=== PATIENT | male | born 1975 | race Caucasian/White ===

== ENCOUNTER 2017-10-28 21:06 | Inpatient (IN) | payer OTHER, MEDICARE ==
[~2017-10-28] VITALS: Ht 182.9 cm; Wt 159.2 kg
[~2017-10-28 21:06] MED LIST: AMLO10TA2 PO; AMLO5TAB2 PO; ASPI-621 PO; ATOR-2 PO; BENA40TA2 PO; CALC0.254 PO; CARV12.52 PO; CINN500C2 PO; CLOP75TA52 PO; DOCU-131 PO; ERGO500017 PO; FURO80TA77 PO; GLIM4TAB2 PO; GYMNEMA PO; HYDR-3245 PO; LANTUS PO; LISI5TAB7 PO; NITR0.4T SL; OMEP-110 PO; PANT40TA3 PO; SEVE800T8 PO; SITA25TA PO; SODI650T PO; TORS20TA2 PO; VITAMIN D2 PO
[2017-10-28] MEDS ORDERED: NITROGLYCERIN SINGLE TAB 0.4 MG SL PRN (22:00)
[2017-10-28] MEDS ORDERED: SODIUM CHLORIDE FLUSH 10ML SYR IVF ONE (22:00)
[2017-10-28 22:14] LABS: MEAN CORPUSCULAR HGB CONC 32.6 g/dL (33.2-36.2); MEAN CORPUSCULAR VOLUME 104.4 fL (81-97); MEAN PLATELET VOLUME 8.2 fL (7.4-10.4); PLATELET COUNT 220 x10^3/uL (130-400); RED BLOOD COUNT 3.47 x10^6/uL (4.38-5.82); RED CELL DISTRIBUTION WIDTH 17.6 % (9.4-14.8)
[2017-10-28 22:23] LABS: ALBUMIN 3.6 g/dL (3.4-5.0); ANION GAP 15 mmol/L (5-15); CALCIUM 8.1 mg/dL (8.5-10.1); CHLORIDE 95 mmol/L (98-107)
[2017-10-28 22:35] LABS: INTERNATIONAL NORMALIZED RATIO 1.04 (0.93-1.1); PROTHROMBIN TIME 10.8 Seconds (9.6-11.5)
[2017-10-28 22:52] LABS: BASOPHILS % (AUTO) 1 % (0-1); EOSINOPHILS # (AUTO) 0.07 x10^3/uL (0-0.4); EOSINOPHILS % (AUTO) 1 % (1-7); LYMPHOCYTES % (AUTO) 6 % (22-44); MD YES; MONOCYTES # (AUTO) 0.43 x10^3/uL (0.2-0.8); MONOCYTES % (AUTO) 3 % (2-9); NEUTROPHILS # (AUTO) 11.78 x10^3/uL (1.8-6.8); NEUTROPHILS % (AUTO) 89 % (42-75)
[2017-10-28 23:00] LABS: BASOS#(MANUAL) 0.13 x10^3/uL (0-0.1); BASOS% (MANUAL) 1 % (0-1); EOS#(MANUAL) 0.13 x10^3/uL (0.0-0.4); EOS% (MANUAL) 1 % (1-7); LYMPH#(MANUAL) 1.32 x10^3/uL (1-3.4); LYMPHS% (MANUAL) 10 % (22-44); MONOS#(MANUAL) 0.53 x10^3/uL (0.3-2.7); MONOS% (MANUAL) 4 % (2-9); SEG#(MANUAL) 11.09 x10^3/uL (1.8-6.8); SEGS% (MANUAL) 84 % (42-75)
[2017-10-28 23:01] LABS: ANISOCYTOSIS 1+
[2017-10-28 23:02] LABS: <PLATELET ESTIMATE> ADEQUATE; OVALOCYTES 1+
[2017-10-28 23:03] LABS: <PLT MORPHOLOGY> NORMAL PLT MORPH
[2017-10-29] MEDS ORDERED: NITROGLYCERIN 0.4 MG BOTTLE (25 TABS) SL PRN (00:30)
[2017-10-29] MEDS ORDERED: POLYETHYLENE GLYCOL 17 GM PACKET PO PRN (00:30)
[2017-10-29] MEDS ORDERED: ACETAMINOPHEN 325 MG TABLET PO PRN (00:30)
[2017-10-29] MEDS ORDERED: BISACODYL 10 MG SUPP PR PRN (00:30)
[2017-10-29] MEDS ORDERED: ERGOCALCIFEROL 50,000 UNIT CAPSULE PO SCH (00:30)
[2017-10-29] MEDS ORDERED: ONDANSETRON 2MG/ML, 2ML IVPush PRN (00:30)
[2017-10-29] MEDS: SEVELAMER 800MG TABLET PO SCH ×3 (00:30→16:00)
[2017-10-29] MEDS ORDERED: ATORVASTATIN 80 MG TABLET PO SCH (00:30)
[2017-10-29] MEDS ORDERED: morphine SULFATE 10 MG/ML, 1ML IVPush PRN (00:30)
[2017-10-29] MEDS ORDERED: SODIUM CHLORIDE FLUSH 10ML SYR IVF PRN (00:30)
[2017-10-29 01:00] LABS: HEMOGLOBIN A1C 7.4 % (4.2-6.3)
[2017-10-29 01:07] LABS: FOLATE LEVEL 5.9 ng/mL (3.1-17.5); FREE T4 (FREE THYROXINE) 1.04 ng/dL (0.76-1.46); THYROID STIMULATING HORMONE 0.493 mIU/L (0.358-3.740)
[2017-10-29] MEDS ORDERED: SUCR500T PO (01:30)
[2017-10-29] MEDS ORDERED: GABA-826 PO (01:38)
[2017-10-29] MEDS ORDERED: ISON300T4 PO (01:38)
[2017-10-29] MEDS ORDERED: HEPARIN 5,000 UNITS/ML, 1ML ONE (01:49)
[2017-10-29] MEDS: HEPARIN 5,000 UNITS/ML, 1ML SQ SCH ×2 (01:50→12:37)
[2017-10-29 01:54] VITALS: BP 103/50
[2017-10-29 02:00] VITALS: BP 103/50
[2017-10-29 04:28] LABS: BASOPHILS # (AUTO) 0.06 x10^3/uL (0-0.1); BASOPHILS % (AUTO) 1 % (0-1); EOSINOPHILS # (AUTO) 0.06 x10^3/uL (0-0.4); EOSINOPHILS % (AUTO) 1 % (1-7); LYMPHOCYTES # (AUTO) 1.65 x10^3/uL (1-3.4); LYMPHOCYTES % (AUTO) 12 % (22-44); MD NO; MEAN CORPUSCULAR HEMOGLOBIN 34.9 pg (27.5-34.5); MEAN CORPUSCULAR HGB CONC 33.2 g/dL (33.2-36.2); MEAN CORPUSCULAR VOLUME 105.1 fL (81-97); MEAN PLATELET VOLUME 8.1 fL (7.4-10.4); MONOCYTES # (AUTO) 0.81 x10^3/uL (0.2-0.8); MONOCYTES % (AUTO) 6 % (2-9); NEUTROPHILS # (AUTO) 11.45 x10^3/uL (1.8-6.8); NEUTROPHILS % (AUTO) 82 % (42-75); PLATELET COUNT 192 x10^3/uL (130-400); RED BLOOD COUNT 3.13 x10^6/uL (4.38-5.82); RED CELL DISTRIBUTION WIDTH 17.3 % (9.4-14.8)
[2017-10-29 04:34] LABS: ALANINE AMINOTRANSFERASE < 6 U/L (12-78); ALBUMIN 3.2 g/dL (3.4-5.0); ANION GAP 13 mmol/L (5-15); CALCIUM 7.7 mg/dL (8.5-10.1); CHLORIDE 97 mmol/L (98-107)
[2017-10-29 04:38] LABS: ALKALINE PHOSPHATASE 60 U/L (45-117); BILIRUBIN,TOTAL 0.8 mg/dL (0.2-1.0); TOTAL PROTEIN 7.3 g/dL (6.4-8.2); TROPONIN I < 0.015 ng/mL (0.000-0.045)
[2017-10-29 05:29] VITALS: BP 123/58
[2017-10-29] MEDS ORDERED: REGADENOSON 0.4 MG/5 ML SYRINGE ONE (07:58)
[2017-10-29] MEDS ORDERED: D5%-LACTATED RINGERS 500 ML IV SCH (08:00)
[2017-10-29] MEDS ORDERED: SENNA/DOCUSATE TABLET PO SCH (09:00)
[2017-10-29] MEDS ORDERED: SODIUM CHLORIDE FLUSH 10ML SYR IVF SCH (09:00)
[2017-10-29] MEDS ORDERED: ASPIRIN 81 MG TABLET EC PO SCH (09:00)
[2017-10-29] MEDS ORDERED: INSULIN GLARGINE PO SCH (09:00)
[2017-10-29] MEDS ORDERED: LISINOPRIL 5 MG TABLET PO SCH (09:00)
[2017-10-29] MEDS ORDERED: CARVEDILOL 25 MG TABLET PO SCH (09:00)
[2017-10-29] MEDS ORDERED: FUROSEMIDE 80 MG TABLET PO SCH (09:00)
[2017-10-29] MEDS ORDERED: INSULIN GLARGINE 100 UNITS/ML, PEN SQ-INSULIN SCH ×2 (09:00)
[2017-10-29] MEDS ORDERED: CALCITRIOL 0.25 MCG CAPSULE PO SCH (09:00)
[2017-10-29 11:10] LABS: TROPONIN I < 0.015 ng/mL (0.000-0.045)
[2017-10-29 12:26] VITALS: BP 153/87
[2017-10-29] MEDS ORDERED: POTASSIUM CHLORIDE 20 MEQ TAB.ER.PRT PO ONE (15:00)
== END 2017-10-29 17:36 | disposition home or self-care (01) | DRG 302 ==
LOC: ED 10-29 → EDIP 10-29 00:09 → 5SO 10-29 11:31
PROVIDERS: ADMIT Hospitalist; ATTEND Hospitalist
DX: I25.9 Chronic ischemic heart disease, unspecified (principal); N18.6 End stage renal disease; E11.21 Type 2 diabetes mellitus with diabetic nephropathy; E44.0 Moderate protein-calorie malnutrition; E66.01 Morbid (severe) obesity due to excess calories; I12.0 Hypertensive chronic kidney disease with stage 5 chronic kidney disease or end stage renal disease; E83.51 Hypocalcemia; N25.0 Renal osteodystrophy; R65.10 Systemic inflammatory response syndrome (SIRS) of non-infectious origin without acute organ dysfunction; Z68.42 Body mass index [BMI] 45.0-49.9, adult; E87.1 Hypo-osmolality and hyponatremia; N25.81 Secondary hyperparathyroidism of renal origin; D53.9 Nutritional anemia, unspecified; D63.1 Anemia in chronic kidney disease; D72.829 Elevated white blood cell count, unspecified; E11.22 Type 2 diabetes mellitus with diabetic chronic kidney disease; E78.5 Hyperlipidemia, unspecified; E87.6 Hypokalemia; F17.200 Nicotine dependence, unspecified, uncomplicated; Z60.9 Problem related to social environment, unspecified; F41.9 Anxiety disorder, unspecified; G47.33 Obstructive sleep apnea (adult) (pediatric); I25.10 Atherosclerotic heart disease of native coronary artery without angina pectoris; I25.2 Old myocardial infarction; Z73.3 Stress, not elsewhere classified; Z79.4 Long term (current) use of insulin; Z82.49 Family history of ischemic heart disease and other diseases of the circulatory system; Z83.3 Family history of diabetes mellitus; Z95.1 Presence of aortocoronary bypass graft; Z99.2 Dependence on renal dialysis
CPT/HCPCS: 36415; 71045; 78452; 80048; 80053; 82040; 82607; 82746; 83036; 83880; 84439; 84443; 84484; 85025; 85610; 85730; 87040; 93005; 93017; 99285; J1644; J2785; A9502; C9898; J1815; J7121

== ENCOUNTER 2017-12-29 09:21 | Day surgery (SDC) | payer OTHER, MEDICARE ==
[~2017-12-29] VITALS: Ht 182.9 cm; Wt 145.3 kg
[~2017-12-29 09:21] MED LIST changes: +GABA-826 PO; +ISON300T4 PO; +SUCR500T PO
[2017-12-29] MEDS ORDERED: EPINEPHRINE 1 MG/ML, 1ML ONE (09:54)
[2017-12-29] MEDS ORDERED: BUPIVACAINE/PF 0.5% ONE (09:54)
[2017-12-29] MEDS ORDERED: HEPARIN 1,000 UNITS/ML, 10ML ONE (09:54)
[2017-12-29 10:13] VITALS: BP 163/91
[2017-12-29] MEDS ORDERED: SODIUM CHLORIDE 0.9% 1,000 ML IV SCH (10:18)
[2017-12-29] MEDS ORDERED: FURO80TA3 PO (10:22)
[2017-12-29] MEDS ORDERED: LISI-167 PO (10:22)
[2017-12-29] MEDS ORDERED: LIDOCAINE-MPF 1%, 2ML INFIL ONE (10:30)
[2017-12-29] MEDS ORDERED: METO5TAB5 PO (10:32)
[2017-12-29] MEDS ORDERED: POTA99TA2 PO (10:32)
[2017-12-29] MEDS ORDERED: CHOL500015 PO (10:32)
[2017-12-29] MEDS ORDERED: CALC0.25 PO (10:32)
[2017-12-29] MEDS ORDERED: MAGN400T7 PO (10:32)
[2017-12-29] MEDS ORDERED: DEXT4TAB PO (10:32)
[2017-12-29] MEDS ORDERED: PYRI50TA5 PO (10:32)
[2017-12-29] MEDS ORDERED: INSU100I13 SQ (10:32)
[2017-12-29] MEDS ORDERED: PANT40TA3 PO (10:32)
[2017-12-29] MEDS ORDERED: DOCU100C33 PO (10:32)
[2017-12-29] MEDS ORDERED: BUPR-86 PO (10:36)
[2017-12-29] MEDS ORDERED: SULF1TAB24 PO (10:46)
[2017-12-29] MEDS ORDERED: INSULIN SINGLE DOSE, ER SQ-INSULIN ONE ×2 (11:38→13:57)
[2017-12-29] MEDS ORDERED: INSULIN REGULAR 100 UNITS/ML, 3ML VIAL SQ-INSULIN ONE ×2 (12:00→14:30)
[2017-12-29] MEDS ORDERED: FENTANYL PF 100 MCG/2ML ONE ×3 (12:31→15:26)
[2017-12-29] MEDS ORDERED: MIDAZOLAM 1 MG/ML, 2ML ONE (12:31)
[2017-12-29] MEDS ORDERED: PROPOFOL 10 MG/ML, 20ML ONE (12:32)
[2017-12-29] MEDS ORDERED: WATER-INJECTION,STERILE 10 ML IV ONE (12:33)
[2017-12-29] MEDS ORDERED: CEFAZOLIN 1,000 MG ONE ×3 (12:34→13:02)
[2017-12-29] MEDS ORDERED: HYDROmorphone 1 MG/ML, 1ML IV PRN (13:00)
[2017-12-29] MEDS ORDERED: PROMETHAZINE 12.5 MG SUPP PR PRN (13:00)
[2017-12-29] MEDS ORDERED: hydrALAzine 20 MG/ML, 1ML IV PRN (13:00)
[2017-12-29] MEDS ORDERED: ACETAMINOPHEN 325 MG TABLET PO PRN (13:00)
[2017-12-29] MEDS ORDERED: morphine SULFATE 10 MG/ML, 1ML IV PRN (13:00)
[2017-12-29] MEDS ORDERED: OXYcodone 5 MG/5 ML ORAL.SOL UDC PO PRN (13:00)
[2017-12-29] MEDS ORDERED: ONDANSETRON 2MG/ML, 2ML IVPush PRN (13:00)
[2017-12-29] MEDS ORDERED: PROMETHAZINE 25 MG/ML, 1ML IV PRN (13:00)
[2017-12-29] MEDS ORDERED: ONDANSETRON 2MG/ML, 2ML ONE ×2 (13:03→15:33)
[2017-12-29] MEDS ORDERED: ONDANSETRON ODT 8 MG PO PRN (13:30)
[2017-12-29] MEDS ORDERED: ACETAMINOPHEN 650 MG/20.3 ML UDC ONE (14:11)
[2017-12-29] MEDS ORDERED: OXYcodone 5 MG/5 ML ORAL.SOL UDC ONE (14:11)
[2017-12-29] MEDS: FENTANYL PF 100 MCG/2ML IV PRN ×3 (14:15→15:26)
[2017-12-29] MEDS: LABETALOL 5MG/ML, 20ML IV PRN ×4 (14:35→15:10)
[2017-12-29] MEDS ORDERED: LABETALOL 5MG/ML, 20ML ONE (14:36)
[2017-12-29] MEDS ORDERED: hydrALAzine 20 MG/ML, 1ML ONE (15:18)
[2017-12-29] MEDS ORDERED: ONDANSETRON ODT 4 MG ONE (15:33)
== END 2017-12-29 19:15 | disposition home or self-care (01) ==
LOC: OUT 09:21
PROVIDERS: ATTEND Surgery Vascular Surgery
DX: T85.611A Breakdown (mechanical) of intraperitoneal dialysis catheter, initial encounter (principal); I12.9 Hypertensive chronic kidney disease with stage 1 through stage 4 chronic kidney disease, or unspecified chronic kidney disease; E11.22 Type 2 diabetes mellitus with diabetic chronic kidney disease; N18.9 Chronic kidney disease, unspecified; I25.10 Atherosclerotic heart disease of native coronary artery without angina pectoris; E78.5 Hyperlipidemia, unspecified; Z95.1 Presence of aortocoronary bypass graft; Y83.8 Other surgical procedures as the cause of abnormal reaction of the patient, or of later complication, without mention of misadventure at the time of the procedure; Y92.89 Other specified places as the place of occurrence of the external cause
CPT/HCPCS: 36415; 49422; 80047; 82962; J0171; J0360; J0690; J1644; J2250; J2405; J2704; J3010; J3490

== ENCOUNTER → 2018-09-18 | Outpatient (CLI) | payer OTHER, MEDICARE ==
[~2018-09-18] MED LIST changes: +AMLO-150 PO; -AMLO10TA2 PO; +AMLO10TA6 PO; -AMLO5TAB2 PO; -ASPI-621 PO; +ASPI81TA45 PO; -BENA40TA2 PO; +BENA40TA3 PO; +BUPR-86 PO; +CALC0.25 PO; +CHOL500015 PO; +DEXT-230 PO; +DOCU100C33 PO; +FURO80TA3 PO; +HYDR-3241 PO; +INSU100I13 SQ; +ISON300T10 PO; -ISON300T4 PO; +LINE600T37 PO; +LISI-167 PO; +MAGN400T7 PO; +METO5TAB5 PO; +ONDA4TAB13 SL; +POTA99TA2 PO; +PYRI50TA5 PO; +SULF1TAB24 PO; +TRAM50TA2 PO
[2018-09-18 15:52] LABS: BASOPHILS # (AUTO) 0.03 x10^3/uL (0-0.1); BASOPHILS % (AUTO) 0 % (0-1); EOSINOPHILS # (AUTO) 0.11 x10^3/uL (0-0.4); EOSINOPHILS % (AUTO) 1 % (1-7); LYMPHOCYTES # (AUTO) 1.14 x10^3/uL (1-3.4); LYMPHOCYTES % (AUTO) 14 % (22-44); MD NO; MEAN CORPUSCULAR HEMOGLOBIN 30.7 pg (27.5-34.5); MEAN CORPUSCULAR HGB CONC 32.9 g/dL (33.2-36.2); MEAN CORPUSCULAR VOLUME 93.3 fL (81-97); MEAN PLATELET VOLUME 6.8 fL (7.4-10.4); MONOCYTES # (AUTO) 0.73 x10^3/uL (0.2-0.8); MONOCYTES % (AUTO) 9 % (2-9); NEUTROPHILS # (AUTO) 6.38 x10^3/uL (1.8-6.8); NEUTROPHILS % (AUTO) 76 % (42-75); PLATELET COUNT 353 x10^3/uL (130-400); RED BLOOD COUNT 2.63 x10^6/uL (4.38-5.82); RED CELL DISTRIBUTION WIDTH 20.7 % (9.4-14.8)
[2018-09-18 15:58] LABS: ALANINE AMINOTRANSFERASE 14 U/L (12-78); ALBUMIN 2.3 g/dL (3.4-5.0); ANION GAP 9 mmol/L (5-15); CALCIUM 8.7 mg/dL (8.5-10.1); CHLORIDE 96 mmol/L (98-107); CREATININE 3.14 mg/dL (0.7-1.3)
[2018-09-18 16:01] LABS: ALKALINE PHOSPHATASE 75 U/L (45-117); BILIRUBIN,TOTAL 0.8 mg/dL (0.2-1.0); TOTAL PROTEIN 8.2 g/dL (6.4-8.2)
[2018-09-18 16:34] LABS: INTERNATIONAL NORMALIZED RATIO 1.1 (0.93-1.1); PROTHROMBIN TIME 11.6 Seconds (9.6-11.5)
== END | disposition home or self-care (01) ==
LOC: STAR 14:47
PROVIDERS: ATTEND Podiatrist Foot & Ankle Surgery
DX: Z01.818 Encounter for other preprocedural examination (principal); E11.621 Type 2 diabetes mellitus with foot ulcer; I50.9 Heart failure, unspecified
CPT/HCPCS: 36415; 80053; 85025; 85610; 85730; 93005

== ENCOUNTER 2018-09-23 14:01 | Inpatient (IN) | payer MEDICARE, OTHER ==
[~2018-09-23] VITALS: Ht 182.9 cm; Wt 135.2 kg
[2018-09-23] MEDS ORDERED: BUPIVACAINE 0.25% ONE (15:10)
[2018-09-23] MEDS ORDERED: SODIUM CHLORIDE 0.9% 1,000 ML IV SCH (15:45)
[2018-09-23] MEDS ORDERED: PROPOFOL 10 MG/ML, 20ML ONE (15:50)
[2018-09-23] MEDS ORDERED: ONDANSETRON 2MG/ML, 2ML ONE ×2 (15:50→16:55)
[2018-09-23] MEDS ORDERED: LIDOCAINE-MPF 1%, 2ML INFIL ONE (16:00)
[2018-09-23] MEDS ORDERED: BUPIVACAINE/PF 0.5% ONE (16:04)
[2018-09-23] MEDS ORDERED: FENTANYL PF 100 MCG/2ML ONE (16:04)
[2018-09-23] MEDS ORDERED: VANCOMYCIN 1,000 MG ONE (16:07)
[2018-09-23] MEDS ORDERED: FENTANYL PF 250 MCG/5ML ONE (16:13)
[2018-09-23] MEDS ORDERED: PROMETHAZINE 25 MG/ML, 1ML IV PRN (17:00)
[2018-09-23] MEDS ORDERED: FENTANYL PF 100 MCG/2ML IV PRN (17:00)
[2018-09-23] MEDS ORDERED: HALOPERIDOL 5 MG/ML IV PRN (17:00)
[2018-09-23] MEDS ORDERED: HYDROmorphone 2 MG/ML, 1ML IVPush PRN (17:00)
[2018-09-23] MEDS ORDERED: DIPHENHYDRAMINE 50 MG/ML, 1ML IVPush PRN (17:00)
[2018-09-23] MEDS ORDERED: LABETALOL 5MG/ML, 20ML IV PRN (17:00)
[2018-09-23] MEDS ORDERED: OXYcodone 5 MG/5 ML ORAL.SOL UDC PO PRN (17:00)
[2018-09-23] MEDS ORDERED: PROCHLORPERAZINE 5 MG/ML, 2ML IV PRN (17:00)
[2018-09-23] MEDS ORDERED: hydrALAzine 20 MG/ML, 1ML IV PRN (17:00)
[2018-09-23] MEDS ORDERED: PHARMACY MAY ADJ FOR RENAL FX MC PRN (18:00)
[2018-09-23] MEDS ORDERED: ACETAMINOPHEN 325 MG TABLET PO PRN (18:00)
[2018-09-23] MEDS ORDERED: ONDANSETRON ODT 4 MG PO PRN (18:00)
[2018-09-23] MEDS ORDERED: VANCOMYCIN PER PHARMACY MC PRN (18:00)
[2018-09-23] MEDS ORDERED: morphine SULFATE 10 MG/ML, 1ML IVPush PRN (18:00)
[2018-09-23] MEDS ORDERED: ONDANSETRON 2MG/ML, 2ML IVPush PRN (18:00)
[2018-09-23] MEDS ORDERED: LORazepam 2 MG/ML, 1ML ONE (18:16)
[2018-09-23] MEDS: LORazepam 2 MG/ML, 1ML IVPush PRN ×2 (18:20→18:35)
[2018-09-23 18:24] LABS: MEAN CORPUSCULAR HEMOGLOBIN 30.3 pg (27.5-34.5); MEAN CORPUSCULAR HGB CONC 32.8 g/dL (33.2-36.2); MEAN CORPUSCULAR VOLUME 92.3 fL (81-97); MEAN PLATELET VOLUME 7.6 fL (7.4-10.4); PLATELET COUNT 324 x10^3/uL (130-400); RED BLOOD COUNT 2.05 x10^6/uL (4.38-5.82)
[2018-09-23] MEDS ORDERED: hydrALAzine 20 MG/ML, 1ML ONE (18:25)
[2018-09-23 18:31] LABS: BASOPHILS # (AUTO) 0.01 x10^3/uL (0-0.1); BASOPHILS % (AUTO) 0 % (0-1); EOSINOPHILS # (AUTO) 0.11 x10^3/uL (0-0.4); EOSINOPHILS % (AUTO) 1 % (1-7); LYMPHOCYTES # (AUTO) 0.89 x10^3/uL (1-3.4); LYMPHOCYTES % (AUTO) 8 % (22-44); MONOCYTES # (AUTO) 0.51 x10^3/uL (0.2-0.8); MONOCYTES % (AUTO) 4 % (2-9); NEUTROPHILS # (AUTO) 10.26 x10^3/uL (1.8-6.8); NEUTROPHILS % (AUTO) 87 % (42-75)
[2018-09-23 18:32] LABS: MD NO
[2018-09-23] MEDS ORDERED: METOPROLOL 1 MG/ML, 5ML ONE (19:11)
[2018-09-23] MEDS: METOPROLOL 1 MG/ML, 5ML IV PRN ×2 (19:15→19:30)
[2018-09-23] MEDS ORDERED: PHARMACOKINETIC CONSULTATION MC ONE (20:30)
[2018-09-23] MEDS ORDERED: PHARMACOKINETIC MONITORING MC PRN (20:30)
[2018-09-23] MEDS ORDERED: VANCOMYCIN PMX 1GM/200ML 200 ML IV ONE (20:30)
[2018-09-23] MEDS: PIPERACILLIN/TAZO/PMX 3.375GM 50 ML IV SCH (20:48)
[2018-09-23] MEDS: FUROSEMIDE 80 MG TABLET PO SCH (21:00)
[2018-09-23] MEDS ORDERED: FUROSEMIDE 40 MG TABLET ONE (21:12)
[2018-09-23] MEDS: INSULIN LISPRO 100 UNITS/ML, PEN SQ-INSULIN SCH (21:18)
[2018-09-23] MEDS: LISINOPRIL 10 MG TABLET PO SCH (21:19)
[2018-09-23] MEDS: CARVEDILOL 6.25 MG TABLET PO SCH (21:19)
[2018-09-23] MEDS: HEPARIN 5,000 UNITS/ML, 1ML SQ SCH (21:19)
[2018-09-23] MEDS: GABAPENTIN 100 MG CAPSULE PO SCH (21:19)
[2018-09-23] MEDS: ATORVASTATIN 80 MG TABLET PO SCH (21:20)
[2018-09-23] MEDS: SEVELAMER CARBONATE 800MG TAB PO SCH (21:22)
[2018-09-23] MEDS: PANTOPROZOLE 40MG TABLET PO SCH (21:23)
[2018-09-24] VITALS (11 sets, daily range): BP systolic 100–166; BP diastolic 64–92
[2018-09-24] MEDS: PIPERACILLIN/TAZO/PMX 3.375GM 50 ML IV SCH (02:20)
[2018-09-24] MEDS: HEPARIN 5,000 UNITS/ML, 1ML SQ SCH ×3 (04:23→21:49)
[2018-09-24 05:27] LABS: ALBUMIN 1.9 g/dL (3.4-5.0); ANION GAP 9 mmol/L (5-15); CALCIUM 7.8 mg/dL (8.5-10.1); CHLORIDE 96 mmol/L (98-107)
[2018-09-24 05:28] LABS: HCT (SEDRATE) 18.1 % (39.2-51.8)
[2018-09-24 05:36] LABS: HEMOGLOBIN A1C 7.1 % (4.2-6.3)
[2018-09-24 05:39] LABS: ALANINE AMINOTRANSFERASE 10 U/L (12-78); ALKALINE PHOSPHATASE 65 U/L (45-117); BILIRUBIN,TOTAL 0.5 mg/dL (0.2-1.0); CREATININE 6.66 mg/dL (0.7-1.3); TOTAL PROTEIN 6.8 g/dL (6.4-8.2)
[2018-09-24 06:42] LABS: SEDIMENTATION RATE > 120 mm/hr (0-10)
[2018-09-24] MEDS: INSULIN LISPRO 100 UNITS/ML, PEN SQ-INSULIN SCH ×4 (07:45→22:16)
[2018-09-24] MEDS: SEVELAMER CARBONATE 800MG TAB PO SCH ×3 (13:12→21:45)
[2018-09-24] MEDS: BUPROPION SR 150 MG TABLET PO SCH (13:12)
[2018-09-24] MEDS: GABAPENTIN 100 MG CAPSULE PO SCH ×3 (13:12→21:47)
[2018-09-24] MEDS: CARVEDILOL 6.25 MG TABLET PO SCH ×2 (13:13→21:45)
[2018-09-24] MEDS: METOLAZONE 5 MG TABLET PO SCH (13:14)
[2018-09-24] MEDS: FUROSEMIDE 80 MG TABLET PO SCH ×2 (13:14→21:47)
[2018-09-24] MEDS ORDERED: PIPERACILLIN/TAZO 2.25 GM in NS 50 ML IV SCH (14:00)
[2018-09-24 14:42] LABS: FOLATE LEVEL 7.4 ng/mL (3.1-17.5)
[2018-09-24] MEDS ORDERED: VANCOMYCIN 2,000 MG in SODIUM CHLORIDE 0.9% 250 ML IV ONE (15:00)
[2018-09-24] MEDS ORDERED: DARBEPOETIN 60 MCG/ML SQ SCH (20:30)
[2018-09-24] MEDS ORDERED: FUROSEMIDE 40 MG TABLET ONE (21:42)
[2018-09-24] MEDS: ATORVASTATIN 80 MG TABLET PO SCH (21:47)
[2018-09-24] MEDS: LISINOPRIL 10 MG TABLET PO SCH (21:47)
[2018-09-24] MEDS: PANTOPROZOLE 40MG TABLET PO SCH (21:47)
[2018-09-24] MEDS: PIPERACILLIN/TAZO 2.25 GM in NS 50 ML IV SCH (22:49)
[2018-09-25 01:22] VITALS: BP 129/82
[2018-09-25 01:48] LABS: BASOPHILS # (AUTO) 0.03 x10^3/uL (0-0.1); BASOPHILS % (AUTO) 0 % (0-1); EOSINOPHILS # (AUTO) 0.23 x10^3/uL (0-0.4); EOSINOPHILS % (AUTO) 4 % (1-7); LYMPHOCYTES # (AUTO) 1.56 x10^3/uL (1-3.4); LYMPHOCYTES % (AUTO) 23 % (22-44); MD NO; MEAN CORPUSCULAR HEMOGLOBIN 30.6 pg (27.5-34.5); MEAN CORPUSCULAR HGB CONC 33.4 g/dL (33.2-36.2); MEAN CORPUSCULAR VOLUME 91.5 fL (81-97); MEAN PLATELET VOLUME 7.4 fL (7.4-10.4); MONOCYTES # (AUTO) 0.48 x10^3/uL (0.2-0.8); MONOCYTES % (AUTO) 7 % (2-9); NEUTROPHILS # (AUTO) 4.39 x10^3/uL (1.8-6.8); NEUTROPHILS % (AUTO) 66 % (42-75); PLATELET COUNT 338 x10^3/uL (130-400); RED BLOOD COUNT 2.51 x10^6/uL (4.38-5.82)
[2018-09-25 01:51] LABS: ALANINE AMINOTRANSFERASE 12 U/L (12-78); ALBUMIN 1.9 g/dL (3.4-5.0); ANION GAP 7 mmol/L (5-15); CALCIUM 7.8 mg/dL (8.5-10.1); CHLORIDE 97 mmol/L (98-107); CREATININE 5.04 mg/dL (0.7-1.3)
[2018-09-25 02:06] LABS: % IRON SATURATION 33 % (20-55); ALKALINE PHOSPHATASE 71 U/L (45-117); BILIRUBIN,TOTAL 0.5 mg/dL (0.2-1.0); IRON LEVEL 32 mcg/dL (65-175); TOTAL IRON BINDING CAPACITY 98 mcg/dL (250-450); TOTAL PROTEIN 7.2 g/dL (6.4-8.2)
[2018-09-25] MEDS: HEPARIN 5,000 UNITS/ML, 1ML SQ SCH ×3 (05:00→22:30)
[2018-09-25] MEDS: PIPERACILLIN/TAZO 2.25 GM in NS 50 ML IV SCH ×3 (06:39→22:31)
[2018-09-25] MEDS: INSULIN LISPRO 100 UNITS/ML, PEN SQ-INSULIN SCH ×4 (06:44→22:54)
[2018-09-25 06:49] VITALS: BP 155/85
[2018-09-25] MEDS ORDERED: FUROSEMIDE 40 MG TABLET ONE ×2 (08:44→22:12)
[2018-09-25] MEDS: CARVEDILOL 6.25 MG TABLET PO SCH ×2 (08:46→22:28)
[2018-09-25] MEDS: GABAPENTIN 100 MG CAPSULE PO SCH ×3 (08:47→22:28)
[2018-09-25] MEDS: FUROSEMIDE 80 MG TABLET PO SCH ×2 (08:47→22:30)
[2018-09-25] MEDS: BUPROPION SR 150 MG TABLET PO SCH (08:47)
[2018-09-25] MEDS: ASPIRIN 81 MG TABLET EC PO SCH (08:48)
[2018-09-25] MEDS: SEVELAMER CARBONATE 800MG TAB PO SCH ×3 (08:52→22:28)
[2018-09-25] MEDS: METOLAZONE 5 MG TABLET PO SCH (08:52)
[2018-09-25 13:02] VITALS: BP 123/79
[2018-09-25 20:04] VITALS: BP 162/79
[2018-09-25] MEDS: PANTOPROZOLE 40MG TABLET PO SCH (22:28)
[2018-09-25] MEDS: ATORVASTATIN 80 MG TABLET PO SCH (22:28)
[2018-09-25] MEDS: LISINOPRIL 10 MG TABLET PO SCH (22:34)
[2018-09-26 01:52] VITALS: BP 165/94
[2018-09-26] MEDS: HEPARIN 5,000 UNITS/ML, 1ML SQ SCH ×3 (05:00→23:05)
[2018-09-26 06:00] LABS: BASOPHILS # (AUTO) 0.03 x10^3/uL (0-0.1); BASOPHILS % (AUTO) 1 % (0-1); EOSINOPHILS # (AUTO) 0.31 x10^3/uL (0-0.4); EOSINOPHILS % (AUTO) 5 % (1-7); LYMPHOCYTES # (AUTO) 1.37 x10^3/uL (1-3.4); LYMPHOCYTES % (AUTO) 23 % (22-44); MD NO; MEAN CORPUSCULAR HEMOGLOBIN 30.5 pg (27.5-34.5); MEAN CORPUSCULAR HGB CONC 33.3 g/dL (33.2-36.2); MEAN CORPUSCULAR VOLUME 91.5 fL (81-97); MEAN PLATELET VOLUME 7.6 fL (7.4-10.4); MONOCYTES # (AUTO) 0.46 x10^3/uL (0.2-0.8); MONOCYTES % (AUTO) 8 % (2-9); NEUTROPHILS # (AUTO) 3.91 x10^3/uL (1.8-6.8); NEUTROPHILS % (AUTO) 64 % (42-75); PLATELET COUNT 338 x10^3/uL (130-400); RED BLOOD COUNT 2.53 x10^6/uL (4.38-5.82); RED CELL DISTRIBUTION WIDTH 20.3 % (9.4-14.8)
[2018-09-26 06:12] LABS: ALANINE AMINOTRANSFERASE 13 U/L (12-78); ANION GAP 12 mmol/L (5-15); CALCIUM 8.1 mg/dL (8.5-10.1); CHLORIDE 98 mmol/L (98-107); CREATININE 5.95 mg/dL (0.7-1.3)
[2018-09-26 06:14] LABS: ALKALINE PHOSPHATASE 76 U/L (45-117); BILIRUBIN,TOTAL 0.4 mg/dL (0.2-1.0)
[2018-09-26] MEDS: PIPERACILLIN/TAZO 2.25 GM in NS 50 ML IV SCH ×3 (06:19→23:01)
[2018-09-26 07:16] VITALS: BP 164/85
[2018-09-26] MEDS: INSULIN LISPRO 100 UNITS/ML, PEN SQ-INSULIN SCH ×5 (07:24→23:22)
[2018-09-26] MEDS ORDERED: FUROSEMIDE 40 MG TABLET ONE ×2 (07:35→22:32)
[2018-09-26] MEDS ORDERED: CARVEDILOL 6.25 MG TABLET ONE ×2 (07:36→22:32)
[2018-09-26] MEDS: FUROSEMIDE 80 MG TABLET PO SCH ×2 (07:37→23:04)
[2018-09-26] MEDS: BUPROPION SR 150 MG TABLET PO SCH (07:37)
[2018-09-26] MEDS: ASPIRIN 81 MG TABLET EC PO SCH (07:38)
[2018-09-26] MEDS: SEVELAMER CARBONATE 800MG TAB PO SCH ×3 (07:38→23:02)
[2018-09-26] MEDS: GABAPENTIN 100 MG CAPSULE PO SCH ×3 (07:38→23:03)
[2018-09-26] MEDS: CARVEDILOL 12.5 MG TABLET PO SCH ×2 (07:39→23:03)
[2018-09-26] MEDS: METOLAZONE 5 MG TABLET PO SCH (07:54)
[2018-09-26 13:12] VITALS: BP 162/94
[2018-09-26 19:06] VITALS: BP 150/83
[2018-09-26] MEDS: ATORVASTATIN 80 MG TABLET PO SCH (23:02)
[2018-09-26] MEDS: LISINOPRIL 20 MG TABLET PO SCH (23:02)
[2018-09-26] MEDS: PANTOPROZOLE 40MG TABLET PO SCH (23:04)
[2018-09-27 03:58] VITALS: BP 127/76
[2018-09-27 05:39] LABS: BASOPHILS # (AUTO) 0.06 x10^3/uL (0-0.1); BASOPHILS % (AUTO) 1 % (0-1); EOSINOPHILS # (AUTO) 0.32 x10^3/uL (0-0.4); EOSINOPHILS % (AUTO) 4 % (1-7); LYMPHOCYTES # (AUTO) 2.22 x10^3/uL (1-3.4); LYMPHOCYTES % (AUTO) 29 % (22-44); MD NO; MEAN CORPUSCULAR HEMOGLOBIN 29.5 pg (27.5-34.5); MEAN CORPUSCULAR HGB CONC 32.1 g/dL (33.2-36.2); MEAN CORPUSCULAR VOLUME 91.8 fL (81-97); MEAN PLATELET VOLUME 7.6 fL (7.4-10.4); MONOCYTES # (AUTO) 0.69 x10^3/uL (0.2-0.8); MONOCYTES % (AUTO) 9 % (2-9); NEUTROPHILS # (AUTO) 4.46 x10^3/uL (1.8-6.8); NEUTROPHILS % (AUTO) 58 % (42-75); PLATELET COUNT 377 x10^3/uL (130-400); RED BLOOD COUNT 2.72 x10^6/uL (4.38-5.82); RED CELL DISTRIBUTION WIDTH 19.5 % (9.4-14.8)
[2018-09-27] MEDS: HEPARIN 5,000 UNITS/ML, 1ML SQ SCH ×3 (06:32→22:37)
[2018-09-27] MEDS: PIPERACILLIN/TAZO 2.25 GM in NS 50 ML IV SCH ×2 (06:32→14:46)
[2018-09-27 06:54] VITALS: BP 176/94
[2018-09-27] MEDS: INSULIN LISPRO 100 UNITS/ML, PEN SQ-INSULIN SCH ×4 (07:39→21:23)
[2018-09-27 07:42] VITALS: BP 151/91
[2018-09-27] MEDS: FUROSEMIDE 80 MG TABLET PO SCH ×2 (09:11→21:15)
[2018-09-27] MEDS: ASPIRIN 81 MG TABLET EC PO SCH (09:11)
[2018-09-27] MEDS: SEVELAMER CARBONATE 800MG TAB PO SCH ×3 (09:11→21:15)
[2018-09-27] MEDS: BUPROPION SR 150 MG TABLET PO SCH (09:11)
[2018-09-27] MEDS: METOLAZONE 5 MG TABLET PO SCH (09:12)
[2018-09-27] MEDS: GABAPENTIN 100 MG CAPSULE PO SCH ×3 (09:12→21:23)
[2018-09-27] MEDS: CARVEDILOL 12.5 MG TABLET PO SCH ×2 (09:12→21:16)
[2018-09-27 13:01] VITALS: BP 147/91
[2018-09-27] MEDS: GLIMEPIRIDE 4 MG TABLET PO SCH (21:15)
[2018-09-27] MEDS: LISINOPRIL 20 MG TABLET PO SCH (21:16)
[2018-09-27] MEDS: ATORVASTATIN 80 MG TABLET PO SCH (21:16)
[2018-09-27] MEDS: PANTOPROZOLE 40MG TABLET PO SCH (21:16)
[2018-09-27 21:29] VITALS: BP 158/90
[2018-09-27] MEDS: PIPERACILLIN/TAZO 2.25 GM in DEXTROSE 5% 50 ML IV SCH (22:37)
[2018-09-28] VITALS (7 sets, daily range): BP systolic 144–177; BP diastolic 81–96
[2018-09-28 05:53] LABS: ALANINE AMINOTRANSFERASE 19 U/L (12-78); ALBUMIN 1.9 g/dL (3.4-5.0); ANION GAP 10 mmol/L (5-15); CALCIUM 8.2 mg/dL (8.5-10.1); CHLORIDE 99 mmol/L (98-107)
[2018-09-28 05:59] LABS: ALKALINE PHOSPHATASE 81 U/L (45-117); BILIRUBIN,TOTAL 0.4 mg/dL (0.2-1.0); CREATINE KINASE, TOTAL 37 U/L (39-308); TOTAL PROTEIN 7.3 g/dL (6.4-8.2)
[2018-09-28] MEDS: PIPERACILLIN/TAZO 2.25 GM in DEXTROSE 5% 50 ML IV SCH ×3 (06:21→23:02)
[2018-09-28] MEDS: HEPARIN 5,000 UNITS/ML, 1ML SQ SCH ×3 (06:22→23:02)
[2018-09-28 06:47] LABS: HCT (SEDRATE) 23.6 % (39.2-51.8)
[2018-09-28 06:51] LABS: MEAN CORPUSCULAR HEMOGLOBIN 30.1 pg (27.5-34.5); MEAN CORPUSCULAR HGB CONC 33.1 g/dL (33.2-36.2); MEAN CORPUSCULAR VOLUME 91.1 fL (81-97); MEAN PLATELET VOLUME 7.4 fL (7.4-10.4); PLATELET COUNT 402 x10^3/uL (130-400); RED BLOOD COUNT 2.63 x10^6/uL (4.38-5.82); RED CELL DISTRIBUTION WIDTH 18.9 % (9.4-14.8)
[2018-09-28 07:22] LABS: SEDIMENTATION RATE > 120 mm/hr (0-10)
[2018-09-28 07:25] LABS: BASOPHILS # (AUTO) 0.04 x10^3/uL (0-0.1); BASOPHILS % (AUTO) 1 % (0-1); EOSINOPHILS # (AUTO) 0.25 x10^3/uL (0-0.4); EOSINOPHILS % (AUTO) 4 % (1-7); LYMPHOCYTES # (AUTO) 1.79 x10^3/uL (1-3.4); LYMPHOCYTES % (AUTO) 28 % (22-44); MD SCAN; MONOCYTES # (AUTO) 0.54 x10^3/uL (0.2-0.8); MONOCYTES % (AUTO) 9 % (2-9); NEUTROPHILS # (AUTO) 3.74 x10^3/uL (1.8-6.8); NEUTROPHILS % (AUTO) 59 % (42-75)
[2018-09-28] MEDS: INSULIN LISPRO 100 UNITS/ML, PEN SQ-INSULIN SCH ×4 (07:30→23:18)
[2018-09-28] MEDS: METOLAZONE 5 MG TABLET PO SCH (10:06)
[2018-09-28] MEDS: CARVEDILOL 12.5 MG TABLET PO SCH ×2 (10:06→23:01)
[2018-09-28] MEDS: SEVELAMER CARBONATE 800MG TAB PO SCH ×3 (10:06→23:00)
[2018-09-28] MEDS: GABAPENTIN 100 MG CAPSULE PO SCH ×3 (10:06→23:00)
[2018-09-28] MEDS: FUROSEMIDE 80 MG TABLET PO SCH ×2 (10:06→23:01)
[2018-09-28] MEDS: BUPROPION SR 150 MG TABLET PO SCH (10:06)
[2018-09-28] MEDS: LISINOPRIL 20 MG TABLET PO SCH ×2 (10:07→23:00)
[2018-09-28] MEDS: ASPIRIN 81 MG TABLET EC PO SCH (10:07)
[2018-09-28] MEDS ORDERED: hydrALAzine 20 MG/ML, 1ML IVPush PRN (13:30)
[2018-09-28] MEDS ORDERED: LOPERAMIDE 2 MG CAPSULE PO PRN (16:00)
[2018-09-28] MEDS: GLIMEPIRIDE 4 MG TABLET PO SCH (23:01)
[2018-09-28] MEDS: ATORVASTATIN 80 MG TABLET PO SCH (23:01)
[2018-09-28] MEDS: PANTOPROZOLE 40MG TABLET PO SCH (23:01)
[2018-09-29 03:25] VITALS: BP 156/92
[2018-09-29] MEDS: PIPERACILLIN/TAZO 2.25 GM in DEXTROSE 5% 50 ML IV SCH ×3 (06:38→23:05)
[2018-09-29] MEDS: HEPARIN 5,000 UNITS/ML, 1ML SQ SCH ×3 (06:38→23:05)
[2018-09-29 07:19] VITALS: BP 170/98
[2018-09-29] MEDS ORDERED: FUROSEMIDE 40 MG TABLET ONE (08:14)
[2018-09-29] MEDS: BUPROPION SR 150 MG TABLET PO SCH (08:22)
[2018-09-29] MEDS: SEVELAMER CARBONATE 800MG TAB PO SCH ×3 (08:22→20:48)
[2018-09-29] MEDS: GABAPENTIN 100 MG CAPSULE PO SCH ×3 (08:23→20:48)
[2018-09-29] MEDS: FUROSEMIDE 80 MG TABLET PO SCH ×2 (08:23→20:48)
[2018-09-29] MEDS: LISINOPRIL 20 MG TABLET PO SCH ×2 (08:23→20:48)
[2018-09-29] MEDS: ASPIRIN 81 MG TABLET EC PO SCH (08:24)
[2018-09-29] MEDS: METOLAZONE 5 MG TABLET PO SCH (08:24)
[2018-09-29] MEDS: CARVEDILOL 12.5 MG TABLET PO SCH ×2 (08:24→20:49)
[2018-09-29] MEDS: INSULIN LISPRO 100 UNITS/ML, PEN SQ-INSULIN SCH ×4 (08:25→20:50)
[2018-09-29 08:38] LABS: BASOPHILS # (AUTO) 0.03 x10^3/uL (0-0.1); BASOPHILS % (AUTO) 1 % (0-1); EOSINOPHILS # (AUTO) 0.19 x10^3/uL (0-0.4); EOSINOPHILS % (AUTO) 3 % (1-7); LYMPHOCYTES # (AUTO) 1.68 x10^3/uL (1-3.4); LYMPHOCYTES % (AUTO) 27 % (22-44); MD NO; MEAN CORPUSCULAR HEMOGLOBIN 29.8 pg (27.5-34.5); MEAN CORPUSCULAR HGB CONC 32.5 g/dL (33.2-36.2); MEAN CORPUSCULAR VOLUME 91.7 fL (81-97); MONOCYTES # (AUTO) 0.56 x10^3/uL (0.2-0.8); MONOCYTES % (AUTO) 9 % (2-9); NEUTROPHILS # (AUTO) 3.78 x10^3/uL (1.8-6.8); NEUTROPHILS % (AUTO) 61 % (42-75); PLATELET COUNT 454 x10^3/uL (130-400); RED BLOOD COUNT 2.81 x10^6/uL (4.38-5.82); RED CELL DISTRIBUTION WIDTH 19.4 % (9.4-14.8)
[2018-09-29 08:43] LABS: ALBUMIN 2.2 g/dL (3.4-5.0); ANION GAP 11 mmol/L (5-15); CALCIUM 8.4 mg/dL (8.5-10.1); CHLORIDE 98 mmol/L (98-107); CREATININE 3.53 mg/dL (0.7-1.3)
[2018-09-29] MEDS ORDERED: VANCOMYCIN 2,000 MG in SODIUM CHLORIDE 0.9% 500 ML IV ONE (12:00)
[2018-09-29 12:57] VITALS: BP 154/90
[2018-09-29 20:27] VITALS: BP 178/95
[2018-09-29] MEDS: GLIMEPIRIDE 4 MG TABLET PO SCH (20:47)
[2018-09-29] MEDS: PANTOPROZOLE 40MG TABLET PO SCH (20:47)
[2018-09-29] MEDS: ATORVASTATIN 80 MG TABLET PO SCH (20:48)
[2018-09-30 03:03] VITALS: BP 162/96
[2018-09-30 04:49] LABS: BASOPHILS # (AUTO) 0.05 x10^3/uL (0-0.1); BASOPHILS % (AUTO) 1 % (0-1); EOSINOPHILS # (AUTO) 0.25 x10^3/uL (0-0.4); EOSINOPHILS % (AUTO) 4 % (1-7); LYMPHOCYTES # (AUTO) 2.09 x10^3/uL (1-3.4); LYMPHOCYTES % (AUTO) 32 % (22-44); MD NO; MEAN CORPUSCULAR HEMOGLOBIN 30.8 pg (27.5-34.5); MEAN CORPUSCULAR HGB CONC 33.4 g/dL (33.2-36.2); MEAN CORPUSCULAR VOLUME 92.2 fL (81-97); MEAN PLATELET VOLUME 7.3 fL (7.4-10.4); MONOCYTES # (AUTO) 0.52 x10^3/uL (0.2-0.8); MONOCYTES % (AUTO) 8 % (2-9); NEUTROPHILS # (AUTO) 3.59 x10^3/uL (1.8-6.8); NEUTROPHILS % (AUTO) 55 % (42-75); PLATELET COUNT 436 x10^3/uL (130-400); RED BLOOD COUNT 2.62 x10^6/uL (4.38-5.82)
[2018-09-30 04:58] LABS: ALBUMIN 1.9 g/dL (3.4-5.0); ANION GAP 9 mmol/L (5-15); CALCIUM 8.3 mg/dL (8.5-10.1); CHLORIDE 100 mmol/L (98-107); CREATININE 4.28 mg/dL (0.7-1.3)
[2018-09-30 05:00] LABS: VANCOMYCIN,RANDOM 33.1 mcg/mL
[2018-09-30] MEDS: PIPERACILLIN/TAZO 2.25 GM in DEXTROSE 5% 50 ML IV SCH ×3 (06:24→23:31)
[2018-09-30] MEDS: HEPARIN 5,000 UNITS/ML, 1ML SQ SCH ×3 (06:24→23:31)
[2018-09-30 07:26] VITALS: BP 167/91
[2018-09-30] MEDS: INSULIN LISPRO 100 UNITS/ML, PEN SQ-INSULIN SCH ×4 (07:29→21:56)
[2018-09-30] MEDS: FUROSEMIDE 80 MG TABLET PO SCH ×2 (09:00→21:58)
[2018-09-30 14:30] VITALS: BP 163/98
[2018-09-30] MEDS ORDERED: FUROSEMIDE 40 MG TABLET ONE ×2 (14:36→14:38)
[2018-09-30] MEDS: SEVELAMER CARBONATE 800MG TAB PO SCH ×3 (14:45→23:31)
[2018-09-30] MEDS: BUPROPION SR 150 MG TABLET PO SCH (14:46)
[2018-09-30] MEDS: GABAPENTIN 100 MG CAPSULE PO SCH ×3 (14:47→23:31)
[2018-09-30] MEDS: LISINOPRIL 20 MG TABLET PO SCH ×2 (14:47→23:32)
[2018-09-30] MEDS: ASPIRIN 81 MG TABLET EC PO SCH (14:47)
[2018-09-30] MEDS: METOLAZONE 5 MG TABLET PO SCH (14:52)
[2018-09-30] MEDS: CARVEDILOL 25 MG TABLET PO SCH (18:05)
[2018-09-30 19:30] VITALS: BP 159/94
[2018-09-30] MEDS: ATORVASTATIN 80 MG TABLET PO SCH (21:57)
[2018-09-30] MEDS: GLIMEPIRIDE 4 MG TABLET PO SCH (21:58)
[2018-09-30] MEDS: PANTOPROZOLE 40MG TABLET PO SCH (21:59)
[2018-10-01 00:55] VITALS: BP 153/57
[2018-10-01 05:38] LABS: ALBUMIN 2.1 g/dL (3.4-5.0); ANION GAP 11 mmol/L (5-15); CALCIUM 8.2 mg/dL (8.5-10.1); CHLORIDE 98 mmol/L (98-107)
[2018-10-01 05:40] LABS: CREATININE 4.07 mg/dL (0.7-1.3)
[2018-10-01] MEDS: CARVEDILOL 25 MG TABLET PO SCH (06:54)
[2018-10-01] MEDS: HEPARIN 5,000 UNITS/ML, 1ML SQ SCH (06:54)
[2018-10-01 07:14] LABS: BASOPHILS # (AUTO) 0.04 x10^3/uL (0-0.1); BASOPHILS % (AUTO) 1 % (0-1); EOSINOPHILS # (AUTO) 0.26 x10^3/uL (0-0.4); EOSINOPHILS % (AUTO) 4 % (1-7); LYMPHOCYTES # (AUTO) 2.15 x10^3/uL (1-3.4); LYMPHOCYTES % (AUTO) 31 % (22-44); MD NO; MEAN CORPUSCULAR HGB CONC 32.4 g/dL (33.2-36.2); MEAN CORPUSCULAR VOLUME 92.6 fL (81-97); MEAN PLATELET VOLUME 7.1 fL (7.4-10.4); MONOCYTES # (AUTO) 0.56 x10^3/uL (0.2-0.8); MONOCYTES % (AUTO) 8 % (2-9); NEUTROPHILS # (AUTO) 3.85 x10^3/uL (1.8-6.8); NEUTROPHILS % (AUTO) 56 % (42-75); PLATELET COUNT 437 x10^3/uL (130-400); RED BLOOD COUNT 2.66 x10^6/uL (4.38-5.82); RED CELL DISTRIBUTION WIDTH 19.8 % (9.4-14.8)
[2018-10-01] MEDS: PIPERACILLIN/TAZO 2.25 GM in DEXTROSE 5% 50 ML IV SCH (07:31)
[2018-10-01] MEDS: INSULIN LISPRO 100 UNITS/ML, PEN SQ-INSULIN SCH ×2 (07:31→11:21)
[2018-10-01 08:55] VITALS: BP 116/77
[2018-10-01] MEDS: FUROSEMIDE 80 MG TABLET PO SCH (09:00)
[2018-10-01] MEDS ORDERED: FUROSEMIDE 40 MG TABLET ONE (09:55)
[2018-10-01] MEDS: GABAPENTIN 100 MG CAPSULE PO SCH (10:00)
[2018-10-01] MEDS: SEVELAMER CARBONATE 800MG TAB PO SCH (10:00)
[2018-10-01] MEDS: ASPIRIN 81 MG TABLET EC PO SCH (10:00)
[2018-10-01] MEDS: METOLAZONE 5 MG TABLET PO SCH (10:00)
[2018-10-01] MEDS: BUPROPION SR 150 MG TABLET PO SCH (10:00)
[2018-10-01] MEDS: LISINOPRIL 20 MG TABLET PO SCH (10:00)
[2018-10-01] MEDS ORDERED: ERGOCALCIFEROL 50,000 UNIT CAPSULE PO SCH (12:30)
[2018-10-01] MEDS ORDERED: ERGO500017 PO (13:00)
[2018-10-01] MEDS ORDERED: LOPE2CAP PO (13:00)
[2018-10-01] MEDS ORDERED: CARV25TA12 PO (13:00)
[2018-10-01] MEDS ORDERED: LISI-170 PO (13:00)
[2018-10-01 13:16] VITALS: BP 156/84
== END 2018-10-01 14:18 | DRG 628 ==
LOC: OR 14:01 → ORIP 17:46 → 4NOR 19:56
PROVIDERS: ADMIT Internal Medicine; ATTEND Internal Medicine
PROC: 0QBP0ZZ Excision of Left Metatarsal, Open Approach (ICD-10-PCS; 2018-09-23)
PROC: 0S9N0ZZ Drainage of Left Metatarsal-Phalangeal Joint, Open Approach (ICD-10-PCS; principal; 2018-09-23 16:00)
PROC: 30233N1 Transfusion of Nonautologous Red Blood Cells into Peripheral Vein, Percutaneous Approach (ICD-10-PCS; 2018-09-24)
PROC: 5A1D70Z Performance of Urinary Filtration, Intermittent, Less than 6 Hours Per Day (ICD-10-PCS; 2018-09-24)
PROC: 5A1D70Z Performance of Urinary Filtration, Intermittent, Less than 6 Hours Per Day (ICD-10-PCS; 2018-09-26)
PROC: 5A1D70Z Performance of Urinary Filtration, Intermittent, Less than 6 Hours Per Day (ICD-10-PCS; 2018-09-28)
PROC: 5A1D70Z Performance of Urinary Filtration, Intermittent, Less than 6 Hours Per Day (ICD-10-PCS; 2018-09-30)
DX: E11.621 Type 2 diabetes mellitus with foot ulcer (principal); E43 Unspecified severe protein-calorie malnutrition; M86.8X7 Other osteomyelitis, ankle and foot; L03.116 Cellulitis of left lower limb; L02.612 Cutaneous abscess of left foot; D62 Acute posthemorrhagic anemia; E87.1 Hypo-osmolality and hyponatremia; E87.2 Acidosis; Z68.41 Body mass index [BMI] 40.0-44.9, adult; I13.2 Hypertensive heart and chronic kidney disease with heart failure and with stage 5 chronic kidney disease, or end stage renal disease; E11.69 Type 2 diabetes mellitus with other specified complication; N18.6 End stage renal disease; E11.22 Type 2 diabetes mellitus with diabetic chronic kidney disease; E11.65 Type 2 diabetes mellitus with hyperglycemia; L97.529 Non-pressure chronic ulcer of other part of left foot with unspecified severity; E66.01 Morbid (severe) obesity due to excess calories; D63.1 Anemia in chronic kidney disease; E78.5 Hyperlipidemia, unspecified; G47.33 Obstructive sleep apnea (adult) (pediatric); R19.7 Diarrhea, unspecified; H54.62 Unqualified visual loss, left eye, normal vision right eye; E11.40 Type 2 diabetes mellitus with diabetic neuropathy, unspecified; B96.1 Klebsiella pneumoniae [K. pneumoniae] as the cause of diseases classified elsewhere; N25.0 Renal osteodystrophy; I50.9 Heart failure, unspecified; I25.10 Atherosclerotic heart disease of native coronary artery without angina pectoris; Z95.1 Presence of aortocoronary bypass graft; Z79.4 Long term (current) use of insulin; I25.2 Old myocardial infarction; Z87.891 Personal history of nicotine dependence; Z91.19 Patient's noncompliance with other medical treatment and regimen; Z99.2 Dependence on renal dialysis; Z89.422 Acquired absence of other left toe(s); Z89.412 Acquired absence of left great toe; Z83.3 Family history of diabetes mellitus; Z82.49 Family history of ischemic heart disease and other diseases of the circulatory system; Z90.89 Acquired absence of other organs
CPT/HCPCS: 36415; 80047; 80053; 80069; 80202; 82306; 82550; 82607; 82728; 82746; 82962; 83036; 83540; 83550; 83970; 84100; 84443; 85014; 85018; 85025; 85651; 86140; 86704; 86706; 86850; 86900; 86923; 87040; 87070; 87075; 87077; 87102; 87176; 87186; 87205; 87340; G0378; J0881; J1644; J2405; J2543; J2704; J3010; J3370; J3490; J0360; J1815; J2060; J7030; J7040; J7050; P9016